=== PATIENT | female | born 1985 | race American Indian/Alaskan Native ===

== ENCOUNTER 2017-07-18 17:15 | Emergency (ER) | payer SELFPAY ==
[2017-07-18 17:35] VITALS: BP 116/92
--- NOTE | 2017-07-18 19:36 | Emergency Department Report ---
HPI - General Chief Complaint: Upper Respiratory Infection Time Seen by Provider: 07/18/17 19:30 - HPI HPI: 32-year-old -[place] female comes in with complaints of nasal congestion , chest tightness 2 weeks which is progressively getting more constant. She also complains of pressure sensation to her left eye and pressure in her left foot. Patient does admit that she has a history of sinusitis. Patient denies any cough denies any fever denies any nausea no vomiting denies any diarrhea. Patient does admit to chills and sweats. She also admits to chest is achy and feels like is just tight she denies any radiation. She also reports that she had a decreased appetite. Also reports her left foot swelling a little has been elevated and applying heat which she reports has helped. She's been taking [id number] Claritin Benadryl Tylenol for pain. Patient was seen by her COUNTY MANAGER today. Patient has no known drug allergies. Patient denies taking any meds. She reports no past medical history. ED Past Medical Hx - Past Medical History Previous Medical History?: No - Surgical History Past Surgical History?: No - Social History Smoking Status: Never Smoker Substance Use Type: None - Medications Home Medications: Home Medications Medication Instructions Recorded Confirmed Last Taken Type Dexchlorpheniram/Phenylephrine 1 each PO Q6H #12 tab 07/18/17 Unknown Rx [Rymed Tablet] ED Review of Systems ROS: Stated complaint: FLU LIKE SYMPTOMS Other details as noted in HPI Constitutional: chills Eyes: eye pain (pressure left) ENT: congestion (nasal) Respiratory: denies: cough Cardiovascular: other (chest tightness). denies: chest pain, palpitations, edema Endocrine: no symptoms reported Gastrointestinal: denies: abdominal pain, nausea, diarrhea Genitourinary: denies: urgency, dysuria, discharge Musculoskeletal: joint swelling (left foot). denies: back pain, arthralgia Skin: denies: rash, lesions Neurological: denies: headache, weakness, paresthesias Psychiatric: denies: anxiety, depression Hematological/Lymphatic: denies: easy bleeding, easy bruising Physical Exam - Physical Exam Vital Signs: Vital Signs 07/18/17 17:30 Temperature 98.2 F Pulse Rate 97 H Respiratory 16 Rate Blood Pressure 116/92 O2 Sat by Pulse 0 L Oximetry Physical Exam: GENERAL: Alert and oriented x3, no apparent distress, Normal Gait, atraumatic. HEAD: Head is normocephalic and a-traumatic. Tenderness to palpate of the forehead and behind the eyes. EYES: Extra ocular muscles are intact. Pupils are equal, round, and reactive to light and accommodation. EARS: symetrical, atraumatic, non tender, ear canal clear and moderate cerumen, tympanic membrance non inflamed. gross auditory nml bilaterally. NOSE: Nose symetrical, Nontender,Nares appeared normal. MOUTH:Mouth is well hydrated and without lesions. Tonsils nonerythematous or swollen, Uvula midline, Tongue not elevated. Mucous membranes are moist. Posterior pharynx clear, no exudate or lesions. Patent airways. NECK: Supple. Non edematous, No carotid bruits. No lymphadenopathy or thyromegaly. LUNGS: Symetrical with respiration, No wheezing, no rales or crackles, CTAB. HEART: S1, S2 present, regular rate and rhythm without murmur, no rubs, no gallops. ABDOMEN: No organomegaly was noted,Positive bowel sounds, soft, and non- distended. . Nontender to palpation on all Quadrants, NO CVA tenderness. EXTREMITIES/MUSCULOSKELETAL: No cyanosis, clubbing, rash, lesions or edema. Full ROM bilaterally. UE/LE Pulses 2+ bilaterally. LE and UE 5+ strength bilaterally NEUROLOGIC: No focal Deficit, Cranial nerves II through XII are grossly intact. No loss of sensation, No facial droop, PSYCHIATRIC: Mood is congruent with affect, denies suicidal or homicidal ideations. SKIN: Warm and dry, No lesions, No ulceration or induration present ED Course Vital Signs 07/18/17 17:30 Temperature 98.2 F Pulse Rate 97 H Respiratory 16 Rate Blood Pressure 116/92 O2 Sat by Pulse 0 L Oximetry ED Medical Decision Making - Radiology Data Radiology results: report reviewed, image reviewed FINDINGS: Heart: Normal. Mediastinum/Vessels: Normal. Lungs/Pleural space: No infiltrate, effusion, or pneumothorax. Bony thorax: Mild thoracic scoliosis. Other: IMPRESSION: No pulmonary infiltrate is identified. Transcribed By: JULIAN Dictated By: DALIA WATSON M.D. Electronically Authenticated By: DALIA WATSON M.D. Signed Date/Time: 07/18/17 1767 - Medical Decision Making History it's been evaluated with his provider fast track. I discussed the patient would do a chest x-ray. I discussed the patient that she is having Nasacort congestion she most likely needs symptomatic of Sudafed. Also told patient that for her chest tightness we will check a chest x-ray. Consider patient has no cough no fever most likely normal. Regards to her left foot on exam was within normal limits. Discussed with patient follow-up with her primary care provider. Last understanding. Chest x-ray shows no pulmonary infiltrate is identified. Patient needs to follow-up with her primary care provider for further evaluation. Patient is stable enough to go home and be followed by outpatient care. Critical care attestation.: If time is entered above; I have spent that time in minutes in the direct care of this critically ill patient, excluding procedure time. ED Disposition Clinical Impression: Nasal congestion, Sensation of chest tightness Disposition: DC-01 TO HOME OR SELFCARE Is pt being admited?: No Does the pt Need Aspirin: No Condition: Stable Instructions: Decongestant/Expectorant (By mouth) Additional Instructions: Please follow up with the primary care provider for further evaluation. Take medication as prescribed. Prescriptions: Dexchlorpheniram/Phenylephrine [Rymed Tablet] 1 each PO Q6H #12 tab Referrals: [facility] [Provider Group] - 3-5 Days Forms: Work/School Release Form(ED)
--- NOTE | 2017-07-18 20:42 | XRay Report ---
FINAL REPORT PROCEDURE: XR CHEST ROUTINE 2V TECHNIQUE: PA and lateral chest radiographs were obtained. CPT 05553 HISTORY: chest tightness COMPARISON: No prior studies are available for comparison. FINDINGS: Heart: Normal. Mediastinum/Vessels: Normal. Lungs/Pleural space: No infiltrate, effusion, or pneumothorax. Bony thorax: Mild thoracic scoliosis. Other: IMPRESSION: No pulmonary infiltrate is identified.
== END 2017-07-18 21:24 | disposition home or self-care (01) ==
LOC: ED 17:15
DX: R09.81 Nasal congestion (principal); R07.89 Other chest pain
CPT/HCPCS: 71046; 93005; 93010

== ENCOUNTER 2017-09-08 09:42 | Outpatient (CLI) | payer MEDICAID ==
--- NOTE | 2017-09-11 08:53 | Mammography Report ---
Bilateral mammogram and bilateral breast ultrasound: Patient presents with a history of having bilateral lumpiness in both breasts with occasional pain. The patient however does not currently feel the lumps and was on Depo injections which she no longer takes. The patient is a heterogeneously dense fibroglandular pattern which is symmetric and diffusely distributed. There is no focal mass, architectural distortion, or calcifications. Global bilateral breast ultrasound demonstrates a generally unremarkable breast pattern bilaterally. Benign appearing lymph nodes are identified in the left axilla. CAD used. Impression: No significant findings. Recommendation: Clinical followup. Age appropriate mammogram followup. BI-RADS CATEGORY: 1 = Negative ACR BI-RADS MAMMOGRAPHIC CODES: 0 = Needs additional imaging evaluation; 1 = Negative; 2 = Benign; 3 = Probably benign; 4 = Suspicious; 5 = Malignant; 6 = Known biopsy-proven malignancy COMMENT: 1. Dense breast tissue, i.e., adenosis, fibrocystic changes, etc., may obscure an underlying neoplasm. 2. Approximately 10% of cancers are not detected with mammography. 3. A negative mammography report should not delay biopsy if a clinically suspicious mass is present.
== END 2017-09-08 09:43 | disposition home or self-care (01) ==
LOC: US 09:42
PROVIDERS: ATTEND Obstetrics & Gynecology
DX: N63.10 Unspecified lump in the right breast, unspecified quadrant (principal); N63.20 Unspecified lump in the left breast, unspecified quadrant
CPT/HCPCS: 77066